=== PATIENT | female | born 1995 | race Two or more races ===

== ENCOUNTER 2024-05-14 08:01 | Emergency (ER) | payer MEDICAID, SELFPAY ==
[2024-05-14 08:08] VITALS: BP 122/78; PULSE 81; RESP 19; TEMP 36.8; O2SAT 98; BMI 27.8
--- NOTE | 2024-05-14 08:13 | XR_ITS ---
Examination: Complete OB ultrasound, less than 14 weeks, transabdominal Date and time of exam: May 13, 2024 0909 hrs. Comparison May 07, 2024 Indications: Vaginal bleeding this week, worse today, ultrasound May 07, 2024 7 week 3 day gestation with subchorionic hemorrhage 32 x 10 mm Technique: Obstetrical ultrasound images less than 14 weeks performed via transabdominal imaging Findings: A normal shaped single intrauterine gestation is present in the uterus. pole 1.6 cm corresponds to 8 week 0 day gestational age Cardiac motion 178 BPM Subchorionic hemorrhage 20 x 23 x 19 mm Ultrasonographic survey of visible structures unremarkable. Amniotic fluid volume appears appropriate for this estimated gestational age. Right ovary 2.8 x 1.6 x 2.3 cm arterial flow Left ovary 3.1 x 1.2 x 2.3 cm arterial flow Impression: Viable intrauterine gestation 8 weeks 0 days Smaller subchorionic hemorrhage.
--- NOTE | 2024-05-14 08:14 | EDNOTE_ITS ---
ED OB Contraction Preg RMI/HPI General Chief complaint: Vaginal Bleeding Stated complaint: 8 WKS W/BLEEDING Time Seen by Provider: 05/14/24 08:11 Source: patient Arrival date/time: 05/14/24 08:01 29-year-old female approximately 8 weeks presents emergency department complaining of vaginal bleeding that started this morning. Patient describes bleeding as moderate with small clots. Patient denies any fever, chills, nausea vomiting, diarrhea, or any other associated symptom. Mode of arrival: ambulatory Limitations: no limitations Related Data Home Medications ?Medication ?Instructions ?Recorded ?Confirmed norethindrone (contraceptive) 0.35 0.35 mg PO QDAY #0 tabs 02/14/16 mg tablet (Nor-Q-D) Acetaminophen * (TYLENOL *) 1 tab PO Q4-6HRPRN PRN PAIN #0 tabs 02/28/16 Previous Rx's ?Medication ?Instructions ?Recorded ibuprofen 800 mg tablet 800 mg PO TID PRN pain #30 tabs 03/13/22 Allergies Allergy/AdvReac Type Severity Reaction Status Date / Time NKA* Allergy Uncoded 05/14/24 08:03 Review of Systems Review of Systems Systems Reviewed: All systems reviewed, normal except as documented Constitutional Constitutional: Reports system reviewed and no additional complaints, except as documented, Denies body ache(s), Denies chills and Denies fever(s) Eyes Eyes: Reports system reviewed and no additional complaints, except as documented and Denies change in vision ENT Ears, Nose, Mouth, and Throat: Reports system reviewed and no additional complaints, except as documented, Denies disequilibrium, Denies dizziness, Denies sore throat and Denies vertigo Cardiovascular Cardiovascular: Reports system reviewed and no additional complaints, except as documented, Denies chest pain and Denies dyspnea Respiratory Respiratory: Reports system reviewed and no additional complaints, except as documented, Denies chest congestion, Denies cough and Denies dyspnea Gastrointestinal Gastrointestinal: Reports system reviewed and no additional complaints, except as documented, Denies abdominal pain, Denies nausea and Denies vomiting Genitourinary Genitourinary: Reports abnormal vaginal bleeding Musculoskeletal Musculoskeletal: Reports system reviewed and no additional complaints, except as documented, Denies abnormal gait and Denies arthralgias Integumentary/Breasts Skin/Breast: Reports system reviewed and no additional complaints, except as documented, Denies erythema, Denies rash and Denies wounds Neurologic Neurologic: Reports system reviewed and no additional complaints, except as documented, Denies abnormal gait, Denies disequilibrium, Denies dizziness and Denies vertigo Past Medical History Social History SMOKING STATUS: Never smoker ED Exam General Limitations: Present no limitations General appearance: Present alert and in no apparent distress Head Head exam: Present atraumatic Eye Eye exam: Present normal appearance, PERRL and EOMI ENT ENT exam: Present normal exam, normal oropharynx and mucous membranes moist Neck Neck exam: Present normal inspection, full ROM and trachea midline Chest Chest inspection: Present normal inspection and symmetric chest wall rise Respiratory Respiratory exam: Present normal lung sounds bilaterally Cardiovascular Cardiovascular exam: Present regular rate, normal rhythm and normal heart sounds Abdominal Exam Abdominal exam: Present soft and normal bowel sounds Extremities Exam Extremities exam: Present normal inspection and full ROM Back Exam Back exam: Present normal inspection and full ROM Neurological Exam Neurological exam: Present alert, oriented X3 and CN II-XII intact Psychiatric Psychiatric exam: Present normal affect and normal mood Skin Skin exam: Present warm, dry, intact and normal color Course Quality Measures none Orders Category Date Time Status US OB <= 14 weeks fetus Stat Exams 05/14/24 08:13 Completed ABO/RH Type Stat Lab 05/14/24 08:25 Completed Beta HCG,Quantitative Stat Lab 05/14/24 08:25 Completed CBC Stat Lab 05/14/24 08:25 Completed CMP [Comprehensive Metabolic Panel] Stat Lab 05/14/24 08:25 Completed Urinalysis, C/S if Indicated Stat Lab 05/14/24 08:40 Completed Vital Signs Vital signs: Vital Signs Temperature 98.3 F 05/14/24 08:08 Pulse Rate 81 05/14/24 08:08 Respiratory Rate 19 05/14/24 08:08 Blood Pressure 122/78 05/14/24 08:08 Pulse Oximetry (%) 98 05/14/24 08:08 Oxygen Delivery Method Room Air 05/14/24 08:08 98% room air within normal limits Vaginal Bleeding MDM Narrative MDM Narrative: 29-year-old female approximately 8 weeks presents emergency department complaining of vaginal bleeding that started this morning. Patient describes bleeding as moderate with small clots. Patient denies any fever, chills, nausea vomiting, diarrhea, or any other associated symptom. Patient appears nontoxic and hemodynamically stable. CBC is unremarkable with no leukocytosis or acute anemia. CMP was unremarkable with beta-hCG significantly higher than previous reading [id number]. Ultrasound finding viable intrauterine gestation approximately 8 weeks with subchorionic hemorrhage. Instructed patient to have pelvic rest and follow-up with [facility] upon discharge. Instructed to return to emergency department for any worsening symptoms or as needed. Patient data External records reviewed:: [facility] previous records Clinical information provided by:: patient Social determinants that could affect healthcare access:: none Patient has the following chronic illnesses:: N/A How is presenting disease/condition affected by chronic disease/condition?: no chronic disease Evaluation data The following diagnostics were reviewed and interpreted by me:: lab results and radiology exam(s) Lab and/or radiology exams considered but not ordered:: Ordered Interpretation Summary: Interpreted by me Medications / Prescriptions Medications or Prescriptions considered but not ordered:: N/A Medication administrations:: n/a Consultations Consultation(s) initiated? (list below): No Diagnosis Vaginal Bleeding Differential Diagnosis: threatened and vaginal bleeding Most likely diagnosis given after review of the tests above:: Subchorionic hemorrhage Admission Indicated Admission indicated?: not indicated Explain why admission is indicated or not indicated:: No admission criteria Admission Request Was there a request for admission?: No Disposition Plan Disposition Plan: Discharge Discharge Attestation Discharge Attestation: The patient and all family members were given an opportunity to ask questions and understood the discharge instructions. Discharge instructions specifically effects, indications for sooner follow up or return to the emergency department, and the expected course of current diagnosis. Patient condition: Stable Discharge Plan Plan Patient Disposition: HOME (Self Care) Disposition Comment: Stable Prescriptions/Referrals Prescriptions/Med Rec: No Action norethindrone (contraceptive) [Nor-Q-D] 0.35 MG tablet 0.35 mg PO QDAY Qty: 0 Acetaminophen * (TYLENOL *) 325 MG tablet 1 tab PO Q4-6HRPRN PRN (Reason: PAIN) Qty: 0 Patient Comments: FOR FEVER OR PAIN ibuprofen 800 mg tablet 800 mg PO TID PRN (Reason: pain) Qty: 30 0RF Referrals: Chemo Ruiz MD [Primary Care Provider] - In 1 week Problem List Clinical Impression: Subchorionic hemorrhage in first trimester, Vaginal bleeding affecting early Patient/Caregiver Discharge Instructions Discharge Activity: activity as tolerated Education Materials: Bleeding During Early , [facility] Subchorionic Hemorrhage Additional Instructions: Do not have sex, douche, or use tampons. Do not strain or lift heavy objects. Follow-up with [facility] in 24 to 48 hours. Return to emergency department for any worsening symptoms or as needed. Print Language: Burundian Stand Alone Forms: [employer] Award Info., Work/School Release, Patient Portal Info Letter Attestation MD Attestation The patient was seen by the midlevel practitioner. I, the co-signing physician, was present during the entire ER visit. While I did not physically examine the patient, I was available for consultation as needed.
[2024-05-14 08:39] LABS: Basophils % (Auto) 0 % (0-2.5); Eosinophils # (Auto) 0.2 Thou/mm3 (0.0-0.5); Eosinophils % (Auto) 2 % (0-10); Hematocrit 36.2 % (36.0-46.0); Hemoglobin 12.1 g/dL (12.0-16.0); Immature Granulocytes % (Auto) 0 % (0-0); Immature Granulocytes Auto 0.04 Thou/mm3 (0.00-0.00); Lymphocytes # (Auto) 2.3 Thou/mm3 (1.0-4.8); Lymphocytes % (Auto) 22 % (10-50); Mean Corpuscular HGB Conc 33.4 g/dl (31.0-37.0); Mean Corpuscular Volume 84 fL (80-100); Monocytes # (Auto) 0.5 Thou/mm3 (0.0-0.8); Monocytes % (Auto) 5 % (0-12); Neutrophils # (Auto) 7.3 Thou/mm3 (1.8-7.7); Neutrophils % (Auto) 71 % (37-80); Nucleated Red Blood Cell % 0 /100 WBC (0); Platelet Count 287 Thou/mm3 (140-440); RDW Standard Deviation 38.4 fL (36.4-46.3); Red Blood Count 4.32 Miln/mm3 (4.00-5.20); White Blood Count 10.2 Thou/mm3 (3.6-11.0)
[2024-05-14 08:57] LABS: Collection Type, Urine Clean Catch
--- NOTE | 2024-05-14 09:08 | PC.NURSE ---
[id number] contacted US to come get pt now
[2024-05-14 09:09] LABS: Bacteria,Urine Rare; Bilirubin,Urine Negative (Negative); Blood,Urine 3+ (Negative); Clarity,Urine Clear (Clear/Hazy); Color,Urine Lt-Yellow (Lt Yel-Yel); Culture Indicated,Urine Not Indicated; Glucose, Urine Negative (Negative); Ketones,Urine Negative (Negative); Leukocyte Esterase,Urine Positive (Negative); Nitrite,Urine Negative (Negative); PH,Urine 6.5 (5.0-7.0); Protein,Urine Negative (Neg - Trace); RBC,Urine 11 /hpf (0-3); Specific Gravity,Urine 1.024 (1.001-1.035); Squamous Epithelial Cell,Urine 2 /hpf (0-5); Urobilinogen,Urine Negative mg/dL (0.0-1.0); WBC,Urine 3 /hpf (0-5)
[2024-05-14 09:15] LABS: Alanine Aminotransferase 19 U/L (10-49); Albumin, Serum 4.8 gm/dL (3.5-5.0); Albumin/Globulin Ratio 1.7 (1.2-2.2); Alkaline Phosphatase 58 U/L (46-116); Anion Gap 5 (7-16); Aspartate Amino Transferase 21 U/L (0-34); BUN/Creatinine Ratio 13 Ratio (12-20); Bilirubin,Total 0.3 mg/dL (0.3-1.2); Blood Urea Nitrogen 8 mg/dL (9-23); Calcium 9.5 mg/dL (8.3-10.6); Calcium (Corrected) 9.5 mg/dL (8.5-10.1); Carbon Dioxide 24.5 mMol/L (20.0-31.0); Chloride 106 mMol/L (98-107); Creatinine (Component) 0.6 mg/dL (0.6-1.3); Estimated Creatinine Clearance 123.8 mL/min (>60); Globulin 2.9 gm/dL (2.3-3.5); Glucose 98 mg/dL (74-106); Osmolality,Calculated 268 (275-295); Sodium 135 mMol/L (136-145); Total Protein 7.7 gm/dL (5.7-8.2); eGFR > 60 See Note
[2024-05-14 09:28] LABS: Beta HCG,Quantitative 69328 mIU/mL (<5.0)
== END 2024-05-14 10:36 | disposition home or self-care (01) ==
PROVIDERS: Emergency Provider Emergency Medicine; PCP Family Medicine
DX: O20.8 Other hemorrhage in early pregnancy (principal); Z3A.08 8 weeks gestation of pregnancy
CPT/HCPCS: 36415; 76801; 80053; 81001; 84702; 85025; 86900; 86901; 99284

== ENCOUNTER 2024-06-14 18:28 | Emergency (ER) | payer MEDICAID, SELFPAY ==
[2024-06-14 18:28] VITALS: BMI 29.5
[2024-06-14 18:41] VITALS: BP 114/76; PULSE 80; RESP 16; TEMP 36.7; O2SAT 100
--- NOTE | 2024-06-14 18:51 | XR_ITS ---
Examination: Complete OB ultrasound, less than 14 weeks, transabdominal Date and time of exam: June 14, 20242008 hrs. Indications: Vaginal bleeding and pelvic cramping beginning 3 days ago Technique: Obstetrical ultrasound images less than 14 weeks performed via transabdominal imaging Findings: A normal shaped single intrauterine gestation is present in the uterus. pole 6.2 cm corresponds to 12 weeks 4 days gestational age Cardiac motion 157 BPM Adjacent subchorionic hemorrhage 24 x 18 x 13 mm Ultrasonographic survey of visible structures unremarkable. Amniotic fluid volume appears appropriate for this estimated gestational age. Right ovary 3.5 x 2.5 x 3.1 cm arterial flow Left ovary 4.5 x 2.8 x 3.1 cm arterial flow Impression: Viable intrauterine gestation 12 weeks 4 days Recommend short-term follow-up examination given the subchorionic hemorrhage.
--- NOTE | 2024-06-14 18:51 | PD.EDRME ---
Rapid Medical Screening Exam [facility] Arrival date/time: 06/14/24 18:28 29F at approximately 13 weeks and with no significant PMH presents to ED with 1 day of pelvic pain/cramping and vaginal spotting. Patient has known subchorionic hemorrhage. Chief Complaint: Urogenital-Female Vital signs: Vital Signs Temperature 98.0 F 06/14/24 18:41 Pulse Rate 80 06/14/24 18:41 Respiratory Rate 16 06/14/24 18:41 Blood Pressure 114/76 06/14/24 18:41 Pulse Oximetry (%) 100 06/14/24 18:41 Oxygen Delivery Method Room Air 06/14/24 18:41
[2024-06-14 19:14] LABS: Collection Type, Urine Clean Catch
[2024-06-14 19:22] LABS: Basophils % (Auto) 0 % (0-2.5); Eosinophils # (Auto) 0.1 Thou/mm3 (0.0-0.5); Eosinophils % (Auto) 1 % (0-10); Hematocrit 34.8 % (36.0-46.0); Hemoglobin 12.2 g/dL (12.0-16.0); Immature Granulocytes % (Auto) 1 % (0-0); Immature Granulocytes Auto 0.05 Thou/mm3 (0.00-0.00); Lymphocytes # (Auto) 2.7 Thou/mm3 (1.0-4.8); Lymphocytes % (Auto) 25 % (10-50); Mean Corpuscular HGB Conc 35.1 g/dl (31.0-37.0); Mean Corpuscular Hemoglobin 28.8 pg (25.0-35.0); Mean Corpuscular Volume 82 fL (80-100); Monocytes # (Auto) 0.6 Thou/mm3 (0.0-0.8); Monocytes % (Auto) 5 % (0-12); Neutrophils # (Auto) 7.3 Thou/mm3 (1.8-7.7); Neutrophils % (Auto) 68 % (37-80); Nucleated Red Blood Cell % 0 /100 WBC (0); Platelet Count 299 Thou/mm3 (140-440); RDW Standard Deviation 38.9 fL (36.4-46.3); Red Blood Count 4.23 Miln/mm3 (4.00-5.20); White Blood Count 10.7 Thou/mm3 (3.6-11.0)
[2024-06-14 19:29] LABS: Bacteria,Urine Rare; Bilirubin,Urine Negative (Negative); Blood,Urine 2+ (Negative); Clarity,Urine Turbid (Clear/Hazy); Color,Urine Lt-Yellow (Lt Yel-Yel); Glucose, Urine Negative (Negative); Ketones,Urine Negative (Negative); Leukocyte Esterase,Urine Positive (Negative); Nitrite,Urine Negative (Negative); Protein,Urine Negative (Neg - Trace); RBC,Urine 3 /hpf (0-3); Specific Gravity,Urine 1.016 (1.001-1.035); Squamous Epithelial Cell,Urine 3 /hpf (0-5); Urobilinogen,Urine Negative mg/dL (0.0-1.0); WBC,Urine 9 /hpf (0-5)
[2024-06-14 19:50] LABS: Alanine Aminotransferase 25 U/L (10-49); Albumin, Serum 4.7 gm/dL (3.5-5.0); Albumin/Globulin Ratio 1.6 (1.2-2.2); Alkaline Phosphatase 55 U/L (46-116); Anion Gap 9 (7-16); Aspartate Amino Transferase 22 U/L (0-34); BUN/Creatinine Ratio 10 Ratio (12-20); Bilirubin,Total 0.4 mg/dL (0.3-1.2); Blood Urea Nitrogen < 5 mg/dL (9-23); Calcium 9.6 mg/dL (8.3-10.6); Calcium (Corrected) 9.6 mg/dL (8.5-10.1); Carbon Dioxide 24.9 mMol/L (20.0-31.0); Chloride 101 mMol/L (98-107); Creatinine (Component) 0.5 mg/dL (0.6-1.3); Estimated Creatinine Clearance 146.7 mL/min (>60); Globulin 2.9 gm/dL (2.3-3.5); Glucose 115 mg/dL (74-106); Osmolality,Calculated 268 (275-295); Potassium 3.2 mMol/L (3.4-5.1); Sodium 135 mMol/L (136-145); Total Protein 7.6 gm/dL (5.7-8.2); eGFR > 60 See Note
[2024-06-14 20:20] LABS: Beta HCG,Quantitative 54501 mIU/mL (<5.0)
--- NOTE | 2024-06-14 21:18 | EDNOTE_ITS ---
ED Female Urogenital RME/HPI General Chief complaint: Urogenital-Female Stated complaint: CRAMPING/SPOTTING x 2 DAYS, 13 WKS PREG Time Seen by Provider: 06/14/24 18:58 Arrival date/time: 06/14/24 18:28 RME / HPI RME / HPI Narrative: 06/14/24 18:28 29F at approximately 13 weeks and with no significant PMH presents to ED with 1 day of pelvic pain/cramping and vaginal spotting. Patient has known subchorionic hemorrhage. DR. CAMARENA MAIN ED EVALUATION: 29 year old female with no past medical history, 13 weeks , 2, para 1, presents to the Emergency Department with complaints of vaginal spotting with associated pelvic pain. Symptoms are mild. Pain is described as cramping and rated mild in severity. No modifying factors or radiation reported at this time. No other symptoms reported at this time. Related Data Home Medications ?Medication ?Instructions ?Recorded ?Confirmed norethindrone (contraceptive) 0.35 0.35 mg PO QDAY #0 tabs 02/14/16 mg tablet (Nor-Q-D) Acetaminophen * (TYLENOL *) 1 tab PO Q4-6HRPRN PRN PAIN #0 tabs 02/28/16 Previous Rx's ?Medication ?Instructions ?Recorded ibuprofen 800 mg tablet 800 mg PO TID PRN pain #30 tabs 03/13/22 Allergies Allergy/AdvReac Type Severity Reaction Status Date / Time No Known Allergies Allergy Verified 06/14/24 18:30 Review of Systems Review of Systems Systems Reviewed: All systems reviewed, normal except as documented Past Medical History Social History SMOKING STATUS: Never smoker SUBSTANCE USE: does not use ALCOHOL: Never ED Exam Narrative Physical exam: GENERAL APPEARANCE: alert and oriented x 4, well-developed, well-nourished, no acute distress VITALS: All vitals were reviewed and the pulse ox is 100% on room air, which is normal according to my interpretation. HEENT: Normocephalic, atraumatic; pupils equal, round, reactive to light; EOMI; mucous membranes pink, moist; oropharynx clear NECK: Supple LUNGS: CTABL; no wheezes, no rales, no rhonchi HEART: Regular rate, regular rhythm; normal S1, S2; no murmurs ABDOMEN: non distended; normal BS; soft, no tenderness, no guarding, no rebound; no masses, no organomegaly, no hernia BACK: no CVA tenderness EXTREMITIES: atraumatic; no edema NEUROLOGIC: awake; alert and oriented x4; cranial nerves II-XII grossly intact; no focal sensory or motor deficits PSYCHIATRIC: appropriate mood and affect SKIN: warm, dry, normal color; no rashes Course Quality Measures none Orders Category Date Time Status US OB <= 14 weeks fetus Stat Exams 06/14/24 18:51 Completed ABO/RH Type Stat Lab 06/14/24 18:59 Completed Beta HCG,Quantitative Stat Lab 06/14/24 18:59 Completed CBC Stat Lab 06/14/24 18:59 Completed CMP [Comprehensive Metabolic Panel] Stat Lab 06/14/24 18:59 Completed UA [Urinalysis] Stat Lab 06/14/24 19:05 Completed Urine Culture Stat Lab 06/14/24 19:05 Completed Reevaluation(s) Reevaluation #1: Patient remains clinically stable throughout the emergency department visit. Re- assessment at the time of disposition demonstrates that the patient is in no acute distress. We reviewed all the results, analysis, and treatment plans. Patient is amenable to discharge. Strict return precautions were outlined. Patient was discharged in stable condition. Time: 21:30 Vital Signs Vital signs: Vital Signs Temperature 98.0 F 06/14/24 18:41 Pulse Rate 80 06/14/24 18:41 Respiratory Rate 16 06/14/24 18:41 Blood Pressure 114/76 06/14/24 18:41 Pulse Oximetry (%) 100 06/14/24 18:41 Oxygen Delivery Method Room Air 06/14/24 18:41 Urogenital - Female MDM Narrative MDM Narrative:: IJennifer am scribing for and in the presence of Dr. Camarena. Patient data External records reviewed:: [facility] previous records (Reviewed last ED visit dated 05/14/24, discharged with the following: Subchorionic hemorrhage in first trimester.) Clinical information provided by:: patient Social determinants that could affect healthcare access:: none Patient has the following chronic illnesses:: Denies any PMHx, surgeries, daily medications, or known allergies. 13 weeks , 2, para 1. Patient was seen here and discharged on 05/14/24 with subchorionic hemorrhage in first trimester. How is presenting disease/condition affected by chronic disease/condition?: no chronic disease Evaluation data The following diagnostics were reviewed and interpreted by me:: lab results and radiology exam(s) Lab and/or radiology exams considered but not ordered:: none Interpretation Summary: Procedure(s): US OB <= 14 weeks fetus Accession Number(s): [id number] cc: Chemo Ruiz MD; Ron Coker MD; Andrea Nam PA-C~ Examination: Complete OB ultrasound, less than 14 weeks, transabdominal Date and time of exam: June 14, [id number] hrs. Indications: Vaginal bleeding and pelvic cramping beginning 3 days ago Technique: Obstetrical ultrasound images less than 14 weeks performed via transabdominal imaging Findings: A normal shaped single intrauterine gestation is present in the uterus. pole 6.2 cm corresponds to 12 weeks 4 days gestational age Cardiac motion 157 BPM Adjacent subchorionic hemorrhage 24 x 18 x 13 mm Ultrasonographic survey of visible structures unremarkable. Amniotic fluid volume appears appropriate for this estimated gestational age. Right ovary 3.5 x 2.5 x 3.1 cm arterial flow Left ovary 4.5 x 2.8 x 3.1 cm arterial flow Impression: Viable intrauterine gestation 12 weeks 4 days Recommend short-term follow-up examination given the subchorionic hemorrhage. Dictated By: Ron Coker MD Medications / Prescriptions Medications or Prescriptions considered but not ordered:: none Medication administrations:: see above if any Consultations Consultation(s) initiated? (list below): Yes Consultation #1 (Physician, Specialty, Details): D/W Dr. Arita. Recommends continue current management. Diagnosis Urogenital Female Differential Diagnosis: other (subchorionic hemorrhage, threatened , early loss, ectopic ) Most likely diagnosis given after review of the tests above:: Subchonrionic hemorrhage in second trimester Admission Indicated Admission indicated?: not indicated Admission Request Was there a request for admission?: No Disposition Plan Disposition Plan: Discharge Discharge Attestation Discharge Attestation: The patient and all family members were given an opportunity to ask questions and understood the discharge instructions. Discharge instructions specifically effects, indications for sooner follow up or return to the emergency department, and the expected course of current diagnosis. Patient condition: Stable Discharge Plan Plan Patient Disposition: HOME (Self Care) Prescriptions/Referrals Prescriptions/Med Rec: No Action norethindrone (contraceptive) [Nor-Q-D] 0.35 MG tablet 0.35 mg PO QDAY Qty: 0 Acetaminophen * (TYLENOL *) 325 MG tablet 1 tab PO Q4-6HRPRN PRN (Reason: PAIN) Qty: 0 Patient Comments: FOR FEVER OR PAIN ibuprofen 800 mg tablet 800 mg PO TID PRN (Reason: pain) Qty: 30 0RF Referrals: Chemo Ruiz MD [Primary Care Provider] - In 1 week Problem List Clinical Impression: Subchorionic hemorrhage in second trimester Patient/Caregiver Discharge Instructions Education Materials: [facility] Subchorionic Hemorrhage Print Language: Lithuanian Stand Alone Forms: [employer]a Award Info., Patient Portal Info Letter
== END 2024-06-14 21:39 | disposition home or self-care (01) ==
PROVIDERS: Physician Assistant; Emergency Provider Emergency Medicine; PCP Family Medicine
DX: O20.8 Other hemorrhage in early pregnancy (principal); Z3A.12 12 weeks gestation of pregnancy
CPT/HCPCS: 36415; 76801; 80053; 81001; 84702; 85025; 86900; 86901; 87086; 99284

== ENCOUNTER 2024-10-12 21:40 | Observation (INO) | payer MEDICAID, SELFPAY ==
[2024-10-12 21:59] VITALS: BP 121/84; PULSE 101; RESP 18; RESP 98; TEMP 37.1; BMI 34.2
[2024-10-12 22:23] LABS: ROM Kit Lot # 57807112; ROM Swab Mixed By: DAVIH1; Rupture of Fetal Membranes Positive (Negative); Swb Mxed in Solvent 1 min? Yes
--- NOTE | 2024-10-12 22:30 | XR_ITS ---
Examination: Complete OB ultrasound greater than 14 weeks Date and time of exam: October 12, 2024 at 11:15 PM Indications: Lower back pain and 18 amniotic fluid beginning 4 days ago Findings: Viable intrauterine single fetus with single amniotic sac presentation cephalic Cardiac motion 166 BPM Placenta anterior fundal grade 1 Umbilical cord insertion seen Amniotic fluid 9.3 cm Cervix 4.8 cm Ovaries obscured by the fetus. Composite estimated gestational age based on BPD, head circumference, abdominal circumference, femur length is 30 weeks 0 days Estimated weight 1499.7 g. Survey of intracranial anatomy, spinal anatomy, abdominal anatomy, four-chamber heart performed with no abnormalities identified. Impression: Viable intrauterine gestation cephalic presentation Amniotic fluid index 9.3 cm.
--- NOTE | 2024-10-13 00:02 | ESPR_ITS ---
Documentation for date of: 10/13/24 OB Labor Progress Note Assessment and Plan Comments: Roxi is a 29yo with SIUP at 30wk presenting to L&D for some pelvic cramping/LBP. Denies recent intercourse. She notes no painful/regular ctx, no vaginal bleeding. Normal movement. On questioning, she endorses that the past week each day she notices some wetness on her underwear. She states she isn't sure if it is urine or something else. Doesn't seem to her to look like normal physiologic discharge. She has been very busy going to [employer]. But she states she has not needed to wear a pad at all. She is seen in [facility] and was referred to [facility] for +AFP, + Duff antibodies and an uncertain ultrasound finding involving the skull behind the left ear- she was referred out to [place] for MRI for this. She also had a subchorionic hematoma in 1st trimester. Starting BMI 34. Previous pregnancies: history of 1 prior at term 13 years ago, had IOL for oligo ROS negative other than what was described above. Vitals wnl, afebrile General: well developed, well nourished, no acute distress, conversant Cardiac: normal heart rate Lungs: breathing without distress Abdomen: soft, gravid, non-tender, no rebound or guarding Extremities: no pain with palpation of calves AmniSure was collected by RN and resulted positive, so I presented to perform SSE. SSE: NEFG, negative pooling, normal appearing scant physiologic discharge, cervix is closed/thick/high NST: Reactive, +accels, no decels, mod fer [place]: no regular ctx pattern Formal ultrasound report pending, but pre-petty from tech CHICHI 9+cm. Assessment: Roxi is a 29yo with SIUP at 30wk with no obvious signs of ROM (normal CHICHI, no pooling on SSE), but +AmniSure test. Vitals wnl, benign exam. Reassuring status. Plan: -Discussed conflicting findings and need for a bit more time and information with patient and her , patient is amenable to observation overnight -Plan to repeat CHICHI in the morning -Intermittent FHR monitoring -Regular diet Tabitha Hall MD
[2024-10-13 04:05] VITALS: BP 113/66; PULSE 87
[2024-10-13 07:08] VITALS: BP 112/72; PULSE 95; RESP 18; TEMP 36.9
--- NOTE | 2024-10-13 08:00 | XR_ITS ---
Examination: age Limited Technique: Limited transabdominal sonographic images pelvis Exam date and time: October 13, 2024 0857 hrs. Indications: Leaking amniotic fluid beginning 5 days ago. Findings: Viable intrauterine gestation cephalic presentation spine maternal left Cardiac motion 155 BPM Placenta anterior Amniotic fluid index 15.4 cm Impression: Viable intrauterine gestation cephalic presentation Amniotic fluid index 15.4 cm
--- NOTE | 2024-10-15 14:15 | PD.LDPN ---
Documentation for date of: 10/13/24 OB Labor Progress Note Pelvic Exam Comments: I was given sign out on this patient who has been admitted for observation overnight for repeat CHICHI. Admitted by different provider yesterday. Per admitting provider, patient had a positive amnisure however on speculum examination no pooling ,vagina was completely dry. Overnight observation with patient having a ida underneath, no fluid seen on the ida. Patient was also allowed to ambulate with a panty liner , no fluid on the panty liner. Patient has not felt any more gushes . On repeat Ultrasound , CHICHI measured is 15( gone up). Given possibility of false positive amnisure , and no clinically evident leaking, Patonet is discharged home, Baby remains reasuring status.will return back tomorrow again for repeat CHICHI. In case of evident leaking , bleeding or contractions , patienyt has to come back sooner. Status Comments: reassuring
== END 2024-10-13 10:10 | disposition home or self-care (01) ==
PROVIDERS: Admitting Provider Obstetrics & Gynecology; Visit Provider Student in an Organized Health Care Education/Training Program
DX: O26.893 Other specified pregnancy related conditions, third trimester (principal); R10.2 Pelvic and perineal pain; M54.50 Low back pain, unspecified; Z3A.30 30 weeks gestation of pregnancy
CPT/HCPCS: 59899; 76805; 76815; 84112

== ENCOUNTER 2024-10-14 09:15 | Observation (INO) | payer MEDICAID, SELFPAY ==
[2024-10-14] VITALS (56 sets, daily range): BP systolic 111–136; BP diastolic 69–82; PULSE 90–114; RESP 18–99; TEMP 36.3; O2SAT 84–100; BMI 31.5
--- NOTE | 2024-10-14 09:24 | XR_ITS ---
Examination: Complete OB ultrasound greater than 14 weeks Date and time of exam: October 14, 2024 10:13 AM Indications: Vaginal bleeding beginning 2 days ago Findings: Viable intrauterine single fetus with single amniotic sac presentation cephalic spine maternal left Cardiac motion 157 BPM Placenta fundal anterior grade 1 Umbilical cord insertion seen Amniotic fluid index 5.8 cm Cervix 3.3 cm closed Ovaries obscured by bowel gas. Composite estimated gestational age based on BPD, head circumference, abdominal circumference, femur length is 29 weeks 6 days Estimated weight 1465 g. Survey of intracranial anatomy, spinal anatomy, abdominal anatomy, four-chamber heart performed with no abnormalities identified. Impression: Viable intrauterine gestation cephalic presentation No placental abruption.
--- NOTE | 2024-10-14 09:54 | PD.LDANTE ---
Documentation for date of: 10/14/24 OB Labor/Induct. HPI History of Present Illness Chief complaint: bleeding : 2 Para: 1 Term pregnancies: 1 pregnancies: 0 Living children: 1 History of Abortions: Spontaneous and Elective: 0 History of Vaginal deliveries: 1 History of sections: No History of : No Date of last menstrual period: 03/16/24 EDWIN: 12/21/24 Gestational Age (weeks): 30 Gestational Age (days): 2 Gestational age based on last menstrual period: 30 History of present illness: Roxi is a 29yo with SIUP at 30w2d by lmp c/w 8wk u/s presenting to L&D for follow up NST. She was discharged yesterday morning after being observed overnight. At the time of her first presentation she was only having some pelvic cramping and low back discomfort. On questioning at that time she noted a bit of fluid in her underwear each day for the past week, but was never enough to wear a panty liner or pad. AmniSure was done and positive, but exam showed no pooling. CHICHI was 9.3cm and after overnight observation the repeated CHICHI was 15.4cm, so she was sent home with instructions to return today for NST. Just before she came in, she had a gush of bloody fluid that soaked into a pad, approximately 0845. Upon arrival, when she was getting out of her car, she again felt a gush and soaked a pad with bloody fluid which we were able to see in triage. No regular/painful ctx. She feels very mild pelvic cramping. She has felt very normal movement. 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 Marginal cord insertion. Follow up MRI on 09/16 at [facility] showed normal cranial and skull findings, no signs of NTD echo 09/15 normal Follow up ultrasound normal 09/26 Narrative: : 01/28/2012 iol at 37wk for oligo, 6lb6oz G2: current Subchorionic hematoma in 1st trimester Elevated msAFP (2.76 MoM). Normal NIPT. Had genetic counseling. Saw M Dr. Gagan Lomeli. Declined amniocentesis. Positive anti Fy(a) Foss antibodies (too weak to titer). Hx of blood transfusion 2017 for anemia related to menorrhagia. Q4wk antibody labs have been too weak to titer. Abnormal initial ultrasound (atypical appearance of skull posterior to left ear) with normal follow-up ultrasound, normal MRI, normal echo Marginal cord insertion Rubella non-immune Starting BMI 34 Labs Maternal Blood Type: O Pos Labs: Negative: RPR, Hepatitis B, Rubella Titre, HIV, Chlamydia and Gonorrhea Review of Systems Review of Systems Narrative Review of Systems: Review of Systems Systems Reviewed: All systems reviewed, normal except as documented Constitutional Constitutional: Denies body ache(s), Denies chills, Denies fever(s) and Denies headache(s) ENT Ears, Nose, Mouth, and Throat: Denies headache(s) and Denies vertigo Cardiovascular Cardiovascular: Denies chest pain, Denies palpitations, Denies dyspnea and Denies syncope Respiratory Respiratory: Denies cough, Denies dyspnea Gastrointestinal Gastrointestinal: Denies nausea and Denies vomiting Neurologic Neurologic: Denies convulsions, Denies headache(s), Denies other visual disturbances, Denies syncope and Denies vertigo Past Medical History Family History OTHER FAMILY HX: Dad: HTN Surgical History SURGICAL: Negative Section OTHER SURGICAL HX: cholecystectomy Social History SOCIAL: No tobacco, illicit drug use, or ETOH. , good support. 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 Meds Home Medications and Allergies Home Medications ?Medication ?Instructions ?Recorded ?Confirmed ?Type ferrous sulfate 325 mg (65 mg mg 10/12/24 History iron) tablet folic acid 1 mg tablet 10/12/24 History vit no.95-ferrous tab PO 10/12/24 History fumarate 28 mg-folic acid 800 mcg tablet () Allergies Allergy/AdvReac Type Severity Reaction Status Date / Time No Known Allergies Allergy Verified 10/12/24 22:56 OB Exam Physical Exam Vital signs: Pulse BP Pulse Ox 97 124/82 98 10/14/24 09:19 10/14/24 09:19 10/14/24 09:49 Narrative: General: well developed, well nourished, no acute distress, conversant Cardiac: normal heart rate Lungs: breathing without distress Abdomen: soft, gravid, non-tender, no rebound or guarding Extremities: no edema of BLE SSE: NEFG, pooling of bloody fluid, cervix visually closed/thick/high Detailed Labor and Delivery Exam Dilation (cm): 0 Effacement (%): 0 Cervix position: mid station: -4 Consistency: firm Membranes: ruptured Amniotic fluid: other (bloody) monitor accelerations: 15x15 monitor decelerations: None skilled nursing variability: Moderate (11-25) Contraction frequency (min): no ctx pattern OB Results Labs 10/14/24 10:16 10/14/24 10:10 Impressions Impression: Exam date and time: October 13, 2024 0857 hrs. Indications: Leaking amniotic fluid beginning 5 days ago. Findings: Viable intrauterine gestation cephalic presentation spine maternal left Cardiac motion 155 BPM Placenta anterior Amniotic fluid index 15.4 cm Impression: Viable intrauterine gestation cephalic presentation Amniotic fluid index 15.4 cm OB Assessment & Plan Assessment and Plan (1) premature rupture of membranes (PPROM) delivered, current hospitalization: Status: Acute Assessment and plan: Roxi is a 29yo with SIUP at 30w2d by lmp c/w 8wk u/s with PPROM at 0845 on 10/14/24. +AmniSure. +Pooling. Ultrasound shows CHICHI 5.8cm (decreased from 15.4 on 10/13), cephalic, 1464g (23.4%ile)- based on prelim report. Cervical length 3.3cm (SCE cl/thick/high). Cat I FHRT with rare ctx. Hgb 10.9, WBC count 10.6, PT 10.3, INR 0.9 Complications: Subchorionic hematoma in 1st trimester Elevated msAFP (2.76 MoM). Normal NIPT, negative CF and SMA testing. Had genetic counseling. Saw M Dr. Gagan Lomeli. Declined amniocentesis. Positive anti Fy(a) Foss antibodies (too weak to titer). Hx of blood transfusion 2017 for anemia related to menorrhagia. Q4wk antibody labs have been too weak to titer. Abnormal initial ultrasound (atypical appearance of skull posterior to left ear) with normal MRI 09/16, normal echo 09/20, normal follow-up ultrasound 09/26 Marginal cord insertion Rubella non-immune Starting BMI 34 Plan: -Admit to L&D -Betamethasone 12mg IM, repeat in 24hr (first dose given at 1030) -Azithromycin 1000mg PO x1, Ampicillin 2g IV Q6hr (1st dose given at 1050) -MgSO4 4g/2g IV (started at 1020) with bed rest, cid catheter, strict I/O's, neuro checks, Mg checks -CEFM -Clear liquid diet [id number] -I spoke with patient and her regarding diagnosis of PPROM, treatment with steroids for lung maturity, latency antibiotics to prevent infection, and IV MgSO4 for neuroprotection. Plan is to try to continue to 34wk if there is reassuring maternal and status until that point with no development of infection, placental abruption or labor. She voiced her understanding and I answered all questions. She is amenable to transfer for higher level NICU -I spoke with Dr. Adams and Dr. Swanson who are in agreement with plan and accepting of transfer to [facility] (2) Rh alloimmunization, maternal, antepartum: Status: Acute (3) Abnormal MSAFP (maternal serum alpha-fetoprotein), elevated: Status: Acute (4) Obesity affecting in third trimester, antepartum: Status: Acute (2) Rh alloimmunization, maternal, antepartum Qualifiers: Fetus number: single or unspecified fetus Qualified Code(s): O36.0990 - Maternal care for other rhesus isoimmunization, unspecified trimester, not applicable or unspecified (4) Obesity affecting in third trimester, antepartum Qualifiers: Obesity type affecting : unspecified obesity Qualified Code(s): O99.213 - Obesity complicating , third trimester
[2024-10-14 09:58] LABS: ROM Kit Lot # 57807112
[2024-10-14 09:59] LABS: ROM Swab Mixed By: SAUCT; Rupture of Fetal Membranes Positive (Negative); Swb Mxed in Solvent 1 min? Yes
[2024-10-14] MEDS: Magnesium Sulfate 4 GM Ivpb 4 GM/50 ML BAG IV (10:20)
[2024-10-14] MEDS: BETAMET ACET/BETAMET NA PH (Celestone) 6 MG/ML VIAL 12 MG IM (10:30)
[2024-10-14 10:31] LABS: Basophils % (Auto) 0 % (0-2.5); Eosinophils # (Auto) 0.1 Thou/mm3 (0.0-0.5); Eosinophils % (Auto) 1 % (0-10); Hematocrit 30.9 % (36.0-46.0); Hemoglobin 10.9 g/dL (12.0-16.0); Immature Granulocytes % (Auto) 1 % (0-0); Immature Granulocytes Auto 0.07 Thou/mm3 (0.00-0.00); Lymphocytes # (Auto) 1.3 Thou/mm3 (1.0-4.8); Lymphocytes % (Auto) 12 % (10-50); Mean Corpuscular HGB Conc 35.3 g/dl (31.0-37.0); Mean Corpuscular Hemoglobin 30.1 pg (25.0-35.0); Mean Corpuscular Volume 85 fL (80-100); Monocytes # (Auto) 0.4 Thou/mm3 (0.0-0.8); Monocytes % (Auto) 3 % (0-12); Neutrophils # (Auto) 8.8 Thou/mm3 (1.8-7.7); Neutrophils % (Auto) 83 % (37-80); Nucleated Red Blood Cell % 0 /100 WBC (0); Platelet Count 244 Thou/mm3 (140-440); RDW Standard Deviation 38.5 fL (36.4-46.3); Red Blood Count 3.62 Miln/mm3 (4.00-5.20); White Blood Count 10.6 Thou/mm3 (3.6-11.0)
[2024-10-14] MEDS: RINGERS LACTATED 1000 ML 1,000 ML 125 ML IV (10:34)
[2024-10-14 10:49] LABS: INR 0.9 (0.9-1.3); Prothrombin Time 10.3 Seconds (9.0-12.2)
[2024-10-14] MEDS: Ampicillin Inj 2,000 MG in SODIUM CHLORIDE 0.9% (POP) 100 ML 100 MG IV (10:50)
[2024-10-14 10:51] LABS: Alanine Aminotransferase 15 U/L (10-49); Albumin, Serum 3.8 gm/dL (3.5-5.0); Albumin/Globulin Ratio 1.5 (1.2-2.2); Alkaline Phosphatase 118 U/L (46-116); Anion Gap 8 (7-16); Aspartate Amino Transferase 19 U/L (0-34); BUN/Creatinine Ratio 10 Ratio (12-20); Bilirubin,Total 0.3 mg/dL (0.3-1.2); Blood Urea Nitrogen < 5 mg/dL (9-23); Calcium 9.1 mg/dL (8.3-10.6); Calcium (Corrected) 9.3 mg/dL (8.5-10.1); Carbon Dioxide 24.6 mMol/L (20.0-31.0); Chloride 108 mMol/L (98-107); Creatinine (Component) 0.5 mg/dL (0.6-1.3); Globulin 2.6 gm/dL (2.3-3.5); Glucose 127 mg/dL (74-106); Magnesium 1.5 mg/dL (1.6-2.6); Osmolality,Calculated 280 (275-295); Potassium 3.6 mMol/L (3.4-5.1); Sodium 141 mMol/L (136-145); Total Protein 6.4 gm/dL (5.7-8.2); eGFR > 60 See Note
[2024-10-14] MEDS: MAGNESIUM SULF 20 GM IVPB 20 GM/500 ML BAG IV (10:56)
[2024-10-14] MEDS: SODIUM CHLORIDE 0.9% IV (11:36)
[2024-10-14] MEDS: AZITHROMYCIN IV (11:36)
--- NOTE | 2024-10-14 12:37 | PRELIM_ITS ---
Obstetric ultrasound. October 14, 2024 1013 hours Clinical history: bleeding Comparison: No prior study is available for comparison at the time of interpretation Findings: There is a gravid uterus with a live fetus in cephalic presentation of mean gestational age 29 weeks and 6 days (by biometry). cardiac activity is present at a heart rate of 157 beats per minute. The placenta is fundo anterior in location, maturity grade 1. There is no evidence of placenta previa or retroplacental hemorrhage. Amniotic fluid is adequate (CHICHI = 5.8 cm). Estimated weight is 1464 grams+/- 217 grams. Estimated due date by ultrasound is 12/24/2024. The cervical length measures 3.3 cm. The ovaries are obscured by bowel gas. Impression: Gravid uterus with a single live fetus in cephalic presentation of mean gestational age 29 weeks 6 days. Report Electronically Signed By: Suresh Chacko 10/14/2024 12:36:30 PM [EST]
[2024-10-14] MEDS: TERBUTALINE SULF INJ 1 MG/ML VIAL 0.25 MG SC (13:49)
== END 2024-10-14 14:00 | disposition short-term general hospital (02) ==
PROVIDERS: Admitting Provider Obstetrics & Gynecology; Visit Provider Obstetrics & Gynecology
DX: O42.913 Preterm premature rupture of membranes, unspecified as to length of time between rupture and onset of labor, third trimester (principal); Z3A.30 30 weeks gestation of pregnancy; O99.213 Obesity complicating pregnancy, third trimester; E66.9 Obesity, unspecified; O36.0930 Maternal care for other rhesus isoimmunization, third trimester, not applicable or unspecified; O28.0 Abnormal hematological finding on antenatal screening of mother
CPT/HCPCS: 36415; 59025; 59899; 76805; 80053; 83735; 84112; 85025; 85610; 86850; 86900; 86901; 87081; 96372; J0290; J0456; J0702; J3105; J3475; J7040; J7120